=== PATIENT | female | born 1975 | race Caucasian/White ===

== ENCOUNTER 2023-11-05 21:41 | Emergency (ER) | payer MEDICAID, OTHER ==
[~2023-11-05] VITALS: Ht 162.6 cm; Wt 82.3 kg
[2023-11-05 22:10] VITALS: BP 125/64; O2SAT 100
[2023-11-06] MEDS ORDERED: DIPHENHYDRAMINE 25MG CAPSULE PO ONE (00:30)
[2023-11-06] MEDS ORDERED: DIPH25TA62 MT (00:59)
[2023-11-06 01:41] VITALS: PULSE 99; RESP 16; TEMP 98.3
== END 2023-11-06 01:44 | disposition home or self-care (01) ==
LOC: ER 21:41
DX: T78.40XA Allergy, unspecified, initial encounter (principal); R11.10 Vomiting, unspecified; X58.XXXA Exposure to other specified factors, initial encounter
CPT/HCPCS: 99282